=== PATIENT | female | born 1960 | race Caucasian/White ===

== ENCOUNTER 2018-05-18 03:08 | Emergency (ER) | payer BC ==
[~2018-05-18] VITALS: Ht 162.6 cm; Wt 82.5 kg
[2018-05-18 03:12] VITALS: Ht 162.6 cm; Wt 82.5 kg
--- NOTE | 2018-05-18 04:09 | ERD ---
ER Documentation Chief Complaint Chief Complaint flu-liked symptoms (cough,congestion) x 3 days,denies flu shot/hx HPI 57-year-old female presents with history of cough, congestion, fevers, body aches for the past 3 days. She says that she came in because her son said that she is breathing heavily. Says it hurts when she coughs. Taking Motrin. Denies nausea, vomiting, chest pain, wheezing, shortness of breath, diarrhea. Denies past medical history. Denies allergies. Denies medications. History of hysterectomy . denies alcohol, tobacco, drug use. Up to date on vaccines. ROS All systems reviewed and are negative except as per history of present illness. Allergies Allergies: Coded Allergies: No Known Allergy (Unverified , 05/18/18) PMhx/Soc Medical and Surgical Hx: pt denies Medical Hx History of Surgery: Yes (HYSTERECTOMY) Anesthesia Reaction: No Hx Neurological Disorder: No Hx Respiratory Disorders: No Hx Cardiac Disorders: No Hx Psychiatric Problems: No Hx Miscellaneous Medical Probl: No Hx Alcohol Use: No Hx Substance Use: No Hx Tobacco Use: No Smoking Status: Never smoker FmHx Family History: No diabetes, No coronary disease, No other Physical Exam Vitals Vital Signs Date Temp Pulse Resp B/P (MAP) Pulse Ox O2 O2 Flow FiO2 Time Delivery Rate 05/18/18 98.7 95 20 161/70 97 03:12 (100) Physical Exam Const: No acute distress Head: Atraumatic Eyes: Normal Conjunctiva ENT: Normal External Ears, Nose and Mouth. Neck: Full range of motion. No meningismus. Resp: Clear to auscultation bilaterally Cardio: Regular rate and rhythm, no murmurs Abd: Soft, non tender, non distended. Normal bowel sounds Skin: No petechiae or rashes Back: No midline or flank tenderness Ext: No cyanosis, or edema Neur: Awake and alert Psych: Normal Mood and Affect Procedures/MDM DIAGNOSTIC IMAGING REPORT Patient: CATRACHITA MANNING : 1960 Age: 57 Sex: F MR #: [id number] DOS: 05/18/18 0000 Ordering MD: SOLOMON SILVA Location: [facility] Room/Bed: PROCEDURE: XR Chest. CLINICAL INDICATION: Cough TECHNIQUE: Portable single view of the chest COMPARISON: None. FINDINGS: The lungs are free of focal infiltrate. The pleural spaces are clear. The heart size and mediastinal contours are within normal limits. Osseous structures intact with mild degenerative changes noted. IMPRESSION: No acute process seen within the chest. RPTAT: HSAF Garret Mooney Physician Date Time Electronically viewed and signed by Garret Mooney Physician on 05/18/2018 04:43 RF/ CC: SOLOMON SILVA [phone] 57-year-old female presents with history of cough, congestion, fevers, body aches for the past 3 days. She says that she came in because her son said that she is breathing heavily. Says it hurts when she coughs. Taking Motrin. Denies nausea, vomiting, chest pain, wheezing, shortness of breath, diarrhea. Denies past medical history. Denies allergies. Denies medications. History of hysterectomy . denies alcohol, tobacco, drug use. Up to date on vaccines. Influenza was ordered but patient refused. Chest x-ray was within normal limits. I have low suspicion for strep throat based on history and exam findings, as well as patient not meeting centor criteria for rapid strep testing. I have low suspicion for bacterial sinusitis, pneumonia, tuberculosis, meningitis, pneumothorax, PE, aspirated foreign body, respiratory distress, acute heart failure or other life threatening etiology based on patient history and exam findings. Most likely etiology is viral URI and no further tests are necessary. Patient given rx for promethazine. Patient advised to rest and stay well hydrated. Patient discharged with strict ER precautions. Patient advised to follow up with PMD. All questions answered at discharge. Departure Diagnosis: Primary Impression: Upper respiratory infection URI type: unspecified viral URI Qualified Codes: J06.9 - Acute upper respiratory infection, unspecified Condition: Stable SOLOMON SILVA May 18, 2018 04:09
[2018-05-18] MEDS ORDERED: D-ME473S2 PO (04:50)
[2018-05-18 05:00] VITALS: BP 117/60; PULSE 79; RESP 19
== END 2018-05-18 05:01 | disposition home or self-care (01) ==
LOC: FTE 03:08
DX: J06.9 Acute upper respiratory infection, unspecified (principal)
CPT/HCPCS: 71045